=== PATIENT | female | born 1960 | race Caucasian/White ===

== ENCOUNTER 2020-11-22 10:30 | Outpatient (CLI) | payer BC ==
--- NOTE | 2020-11-22 11:04 | RAD ---
CERVICAL SPINE SERIES 4 VIEWS TO INCLUDE FLEXION AND EXTENSION: HISTORY: Neck pain. FINDINGS: The patient has undergone anterior cervical fusion. There has been placement of a plate and screws w hich extend from C3 to C7. I do not see a significant change in the anterolisthesis of C2 on C3 in f lexion. It does reduce in extension. Bones are diffusely demineralized. IMPRESSION: Postop changes and arthritic changes of the spine as discussed above. POS: [facility]
== END 2020-11-22 10:31 | disposition home or self-care (01) ==
LOC: BICRAD 10:30
PROVIDERS: ATTEND Nurse Practitioner Family
DX: M47.812 Spondylosis without myelopathy or radiculopathy, cervical region (principal); Z98.1 Arthrodesis status
CPT/HCPCS: 72050